=== PATIENT | female | born 2000 | race Two or more races ===

== ENCOUNTER 2018-04-30 21:28 | Emergency (ER) | payer OTHER ==
[2018-04-30] MEDS ORDERED: Ibuprofen TAB* 600 MG PO ONE (23:23)
--- NOTE | 2018-04-30 23:30 | ED ---
Lower Extremity - HPI Summary HPI Summary: Patient complains of right ankle and right foot pain after fall while going up stairs today at 8:30 PM. Denies any other injury or symptoms other than mild scratch to right middle finger. Tetanus status up-to-date. - History of Current Complaint Chief Complaint: EDExtremityLower Stated Complaint: RT FOOT INJURY Time Seen by Provider: 04/30/18 22:43 Hx Obtained From: Patient Mechanism Of Injury: Fall From A Standing Position Onset of Pain: Immediate Onset/Duration: Hours Severity Initially: Severe Severity Currently: Severe Pain Intensity: 9 Pain Scale Used: 0-10 Numeric Timing: Constant Location: Is Discrete @ Character Of Pain: Sharp, Throbbing Associated Signs And Symptoms: Positive: Swelling. Negative: Knee Pain Aggravating Factor(s): Ambulation, Movement, Weight Bearing Alleviating Factor(s): Rest Able to Bear Weight: Yes - Allergies/Home Medications Allergies/Adverse Reactions: Allergies Allergy/AdvReac Type Severity Reaction Status Date / Time No Known Allergies Allergy Verified 04/30/18 21:39 PMH/Surg Hx/FS Hx/Imm Hx Endocrine/Hematology History: Denies: Hx Anticoagulant Therapy Cardiovascular History: Denies: Hx Cardiac Arrest History: Denies: Hx Dialysis Neurological History: Denies: Hx CVA Infectious Disease History: No Infectious Disease History: Denies: Traveled Outside the [place] in Last 30 Days - Social History Occupation: Student Alcohol Use: None Substance Use Type: Reports: None Smoking Status (MU): Former Smoker Review of Systems Constitutional: Negative Eyes: Negative Cardiovascular: Negative Respiratory: Negative Gastrointestinal: Negative Genitourinary: Negative Positive: Arthralgia Skin: Negative Neurological: Negative Psychological: Normal All Other Systems Reviewed And Are Negative: Yes Physical Exam - Summary Physical Exam Summary: Mild swelling to right ankle. No erythema, ecchymosis, deformity, extra warmth noted to right ankle or foot. PMS intact distally. calf Soft nontender. Triage Information Reviewed: Yes Vital Signs On Initial Exam: Initial Vitals Temp Pulse Resp BP Pulse Ox 98.1 F 90 20 110/71 99 04/30/18 21:30 04/30/18 21:30 04/30/18 21:30 04/30/18 21:30 04/30/18 21:30 Vital Signs Reviewed: Yes Appearance: Positive: Well-Appearing Skin: Positive: Warm Head/Face: Positive: Normal Head/Face Inspection Eyes: Positive: Normal Neck: Positive: Supple Respiratory/Lung Sounds: Positive: Clear to Auscultation Cardiovascular: Positive: Normal Abdomen Description: Positive: Nontender Musculoskeletal: Positive: Normal Neurological: Positive: Normal Psychiatric: Positive: Normal AVPU Assessment: Alert - Evita Coma Scale Best Eye Response: 4 - Spontaneous Best Motor Response: 6 - Obeys Commands Best Verbal Response: 5 - Oriented Coma Scale Total: 15 Diagnostics - Vital Signs Vital Signs Temp Pulse Resp BP Pulse Ox 04/30/18 21:30 98.1 F 90 20 110/71 99 - Laboratory Lab Statement: Any lab studies that have been ordered have been reviewed, and results considered in the medical decision making process. - Radiology ankjle Xray Interpretation: No Acute Changes Radiology Interpretation Completed By: ED Physician foot Xray Interpretation: No Acute Changes Radiology Interpretation Completed By: ED Physician Lower Extremity Course/Dx - Course Course Of Treatment: Patient complains of right ankle and right foot pain after fall while going up stairs today at 8:30 PM. Denies any other injury or symptoms other than mild scratch to right middle finger. Tetanus status up-to- date. Physical exam: Mild swelling to right ankle. No erythema, ecchymosis, deformity, extra warmth noted to right ankle or foot. PMS intact distally. calf Soft nontender. X-rays for foot and ankle negative. Patient given ankle gel splint. Refused crutches. - Diagnoses Provider Diagnoses: Ankle sprain Discharge - Sign-Out/Discharge Documenting (check all that apply): Patient Departure - Discharge Plan Condition: Stable Disposition: HOME Patient Education Materials: Ankle Sprain (ED), Ankle Stirrup Splint (ED) Referrals: No Primary Care Phys,NOPCP [Primary Care Provider] - Emir Xavier MD [Medical Doctor] - Additional Instructions: Ice and ibuprofen for pain and swelling and right ankle. If symptoms do not improve 5-7 days follow-up with orthopedics Dr. Xavier. Return to the ED for any new or worsening symptoms - Billing Disposition and Condition Condition: STABLE Disposition: Home
[2018-05-01 01:49] VITALS: BP 103/62
--- NOTE | 2018-05-01 07:37 | RAD ---
Indication: RIGHT foot and ankle pain; bunion repair January 2017. Comparison: RIGHT foot of the same date. Technique: AP, mortise, and lateral views RIGHT ankle. Report: Normal articular alignment. Negative for fracture or osteochondral lesion. No arthropathic change evident. Unremarkable soft tissue contours. IMPRESSION: #. Negative exam. R0
--- NOTE | 2018-05-01 07:40 | RAD ---
Indication: RIGHT foot and ankle pain. Fall while going up stairs. Bunion repair in January 2017. Comparison: Ankle of the same date. Technique: AP, lateral, and oblique views RIGHT foot. Report: Healed first metatarsal osteotomy. Suggestion of slight diastases between the medial cuneiform and the base of the second metatarsal. No fracture visualized. Mild first metatarsal phalangeal joint space narrowing. Unremarkable soft tissue contours. IMPRESSION: #. Suggestion of slight diastases at the medial cuneiform second metatarsal base interval. If there is clinical concern for potential midfoot sprain consider bilateral weightbearing views for further assessment. R2
== END 2018-05-01 01:47 | disposition home or self-care (01) ==
LOC: ED 21:28
DX: S93.401A Sprain of unspecified ligament of right ankle, initial encounter (principal); M79.671 Pain in right foot; W10.9XXA Fall (on) (from) unspecified stairs and steps, initial encounter; Y92.9 Unspecified place or not applicable
CPT/HCPCS: 99282; A9270-GY